=== PATIENT | female | born 1945 | race Caucasian/White ===

== ENCOUNTER 2017-04-14 13:10 | Day surgery (SDC) | payer MEDICARE ==
[~2017-04-14] VITALS: Ht 163.8 cm; Wt 68.0 kg
[~2017-04-14 13:10] MED LIST: ASPI-628 PO; ERGO400C PO; LACT1CAP67 PO; METR500T PO; MULT-56 PO; QUE9 PO; SERT50TA9 PO; Sodium Chloride LOK Flush 10 mL Syringe IV PRN; fentaNYL-PF 50 mCg/mL 2 mL Inj IVPUSH PRN
[2017-04-14 13:35] VITALS: BP 125/72; PULSE 75; RESP 16; O2SAT 98
[2017-04-14] MEDS ORDERED: MELO7.5O PO (13:46)
[2017-04-14] MEDS: 0.9% Sodium Chloride 1,000 ML IV PRN ×3 (14:01→14:54)
[2017-04-14 15:01] VITALS: BP 104/61; PULSE 73; RESP 16; O2SAT 100
[2017-04-14 15:12] VITALS: BP 108/67; PULSE 68; RESP 13; O2SAT 100
[2017-04-14 15:21] VITALS: BP 102/68; PULSE 70; RESP 15; O2SAT 99
--- NOTE | 2017-04-14 15:28 | ENDO ---
[address] [address] ENDOSCOPY PROCEDURE PATIENT: EMILY GARNETT : 1945 MR#: [id number] ADMIT: 04/14/2017 JOB ID: [id number] DATE: 04/14/2017 PRIMARY PROVIDER: Kaylin Sam M.D. PROCEDURE: Colonoscopy. INDICATIONS: A 71-year-old female with a personal history of colon polyps returning for surveillance. EQUIPMENT: PCF H 180 AL. SEDATION: 1. 5 mg Versed. 2. 75 mcg fentanyl. COMPLICATIONS: None identified. BOWEL PREPARATION: Fair, adequate examination. PROCEDURAL INFORMATION: After the risks and benefits were explained, written and verbal informed consent was obtained. The patient was brought into the endoscopy suite and placed into the left lateral decubitus position. Sedation was achieved using the above-stated medications with the addition of oxygen via nasal cannula. A digital rectal examination was accomplished. No significant pathology appreciated. The scope was introduced into the rectum and advanced under direct visualization to cecum as identified by the appendiceal orifice and ileocecal valve. The scope was slowly withdrawn to carefully examine the mucosa for any defects or lesions. Multiple direct views were made through the dentate line for exclusion of pathology. The colon was decompressed. The scope removed the patient who tolerated the procedure well. FINDINGS: No significant polyps, mass lesions or inflammatory features identified throughout. The patient had moderate diverticulosis through the sigmoid colon. Very tortuous challenging navigation to cecum. ENDOSCOPIC DIAGNOSES: Diverticulosis. RECOMMENDATIONS: Repeat colonoscopy five years considering personal history of colon polyps.
== END 2017-04-14 23:59 | disposition home or self-care (01) ==
LOC: END 13:10
PROVIDERS: ATTEND Internal Medicine Gastroenterology
DX: Z12.11 Encounter for screening for malignant neoplasm of colon (principal); K57.30 Diverticulosis of large intestine without perforation or abscess without bleeding; Z86.010 Personal history of colon polyps; Z87.891 Personal history of nicotine dependence
CPT/HCPCS: 99153; G0105; G0500; J2250; J3010; J7030